=== PATIENT | male | born 1970 | race Caucasian/White ===

== ENCOUNTER 2020-08-31 16:38 | Emergency (ER) | payer OTHER ==
[~2020-08-31] VITALS: Ht 193 cm; Wt 154.2 kg
[2020-08-31 17:03] LABS: HEMATOCRIT 45.9 % (42.0-52.0); MEAN CORPUSCULAR HGB 32.9 pg (27.0-31.0); MEAN CORPUSCULAR HGB CONC 32.2 g/dl (33.0-37.0); MEAN PLATELET VOLUME 9.9 fl (9.6-12.3); PLATELET COUNT AUTOMATED 211 10*3/uL (130-400); RED CELL DISTRI WIDTH 13.8 % (0-14.5); WHITE BLOOD COUNT 9.4 10*3/uL (4.8-10.8)
[2020-08-31 17:19] LABS: ALBUMIN 3.2 gm/dl (3.1-4.5); ALKALINE PHOSPHATASE 60 U/L (45-117); BUN 12 mg/dl (7-24); CHLORIDE 103 mmol/L (98-107); CREATININE 1.04 mg/dL (0.70-1.30); POTASSIUM 4.1 mmol/L (3.5-5.1); SGOT/AST 23 IU/L (3-35); SGPT/ALT 32 U/L (12-78); SODIUM 139 mmol/L (136-145); TOTAL PROTEIN 7.7 gm/dL (6.4-8.2)
[2020-08-31 17:23] LABS: ATYPICAL LYMPHS 2 % (0-0); BASOPHILS 1 % (0-1); TOTAL CELLS COUNTED 100 #CELLS
[2020-08-31 17:24] LABS: PLATELET SUFFICIENCY NORMAL (NORMAL)
[2020-08-31] MEDS ORDERED: CLINDAMYCIN HC300 MG PO (18:20)
== END 2020-08-31 18:36 | disposition home or self-care (01) ==
LOC: ED 16:38
PROVIDERS: Physician Assistant
DX: L03.116 Cellulitis of left lower limb (principal); Z88.0 Allergy status to penicillin